=== PATIENT | male | born 1970 ===

== ENCOUNTER 2018-03-14 17:56 | Emergency (ER) | payer MEDICAID ==
[2018-03-14 18:10] VITALS: RESP 16; O2SAT 99
--- NOTE | 2018-03-14 19:13 | ED PDOC ---
HPI: General Adult Time Seen by Provider: 03/14/18 18:39 Chief Complaint (Nursing): Lower Extremity Problem/Injury Chief Complaint (Provider): Extremity Problem/Injury History Per: Patient History/Exam Limitations: no limitations Onset/Duration Of Symptoms: Days (x5) Current Symptoms Are (Timing): Still Present Additional Complaint(s): 47 year old male with a history of diabetes and psoriasis presents to the ED with swelling and numbness in legs, right flank pain and left hand swelling, pain and numbness onset 5 days. Patient reports no injury, but has bruising to his left great toe. He describes intermittent right flank pain that is worse with movement. Patient denies fever, chills, chest pain, abdominal pain, nausea , vomiting, diarrhea, urinary symptoms, or any other medical complaints. His sugar is usually around 200 and he is compliant with his medications with exception of today. PMD: [place] Past Medical History Reviewed: Historical Data, Nursing Documentation, Vital Signs Vital Signs: Last Vital Signs Temp 98.6 F 03/14/18 18:07 Pulse 90 03/14/18 18:07 Resp 16 03/14/18 18:07 BP 156/79 H 03/14/18 18:07 Pulse Ox 99 03/14/18 22:50 - Medical History PMH: Diabetes Other PMH: psoriasis - Surgical History Surgical History: No Surg Hx - Family History Family History: States: Unknown Family Hx - Home Medications Home Medications: Ambulatory Orders Medication Instructions Recorded Cephalexin [cephalexin] 500 mg PO BID #14 cap 03/14/18 Gabapentin 300 mg PO BID #30 capsule 03/14/18 - Allergies Allergies/Adverse Reactions: Allergies Allergy/AdvReac Type Severity Reaction Status Date / Time No Known Allergies Allergy Verified 03/14/18 18:07 Review of Systems ROS Statement: Except As Marked, All Systems Reviewed And Found Negative Genitourinary Male: Positive for: Other (right flank pain ) Musculoskeletal: Positive for: Hand Pain (in left, swelling, pain and numbness) , Other (left great toe bruising, swelling and numbness in legs) Physical Exam - Reviewed Nursing Documentation Reviewed: Yes Vital Signs Reviewed: Yes - Physical Exam Appears: Positive for: Non-toxic, No Acute Distress Head Exam: Positive for: ATRAUMATIC, NORMOCEPHALIC Skin: Positive for: Normal Color, Warm, Dry Eye Exam: Positive for: Normal appearance, EOMI, PERRL ENT: Positive for: Normal ENT Inspection Neck: Positive for: Normal, Painless ROM, Supple Cardiovascular/Chest: Positive for: Regular Rate, Rhythm. Negative for: Murmur Respiratory: Positive for: Normal Breath Sounds. Negative for: Accessory Muscle Use, Respiratory Distress Gastrointestinal/Abdominal: Positive for: Normal Exam, Soft. Negative for: Tenderness Back: Positive for: Other (no flank tenderness). Negative for: R CVA Tenderness Extremity: Positive for: Calf Tenderness (mild), Other (Right dorsum of hand: excoriations and psoriatic rash, right hand: mild tenderness to palpation and erythema) Neurologic/Psych: Positive for: Alert, Oriented (x3) - Laboratory Results Result Diagrams: 03/14/18 19:28 03/14/18 19:28 - ECG O2 Sat by Pulse Oximetry: 99 (RA) Pulse Ox Interpretation: Normal - Progress Re-evaluation Time: 22:40 Condition: Re-examined, Improved Medical Decision Making Medical Decision Making: Time: 1851 Initial Impression: paresthesia of legs, left leg pain, left hand pain and swelling, right flank pain Differential diagnoses include but are not limited to: peripheral diabetic neuropathy of legs, left hand arthritis or possible cellulitis, psoriatic arthritis, musculoskeletal pain and less likely renal colic and uti, dvt, bilateral arthritis of feet possibly psoriatic Initial Plan: --Abdomen and Pelvis CT --CMP --Urine dip --CBC with differentials --Erythrocyte sedimentation --Ultram 50 mg PO --Left foot XR --Left hand XR --Duplex lower extremity Time: 2121 Duplex lower extremity FINDINGS: Right deep veins: Unremarkable. No DVT in the right common femoral, femoral, proximal deep femoral or popliteal veins. The veins demonstrate normal color flow, are normally compressible, with normal phasic flow and/or augmentation response. Right superficial veins: Unremarkable. No thrombus in the visualized right great saphenous vein. Left deep veins: Unremarkable. No DVT in the left common femoral, femoral, proximal deep femoral or popliteal veins. The veins demonstrate normal color flow, are normally compressible, with normal phasic flow and/or augmentation response. Left superficial veins: Unremarkable. No thrombus in the visualized left great saphenous vein. Soft tissues: No acute findings. No popliteal cyst. IMPRESSION: Normal bilateral lower extremity duplex venous ultrasound. Scribe Attestation: Documented by Toña Cordova, acting as a scribe for Arnaud Ma MD Provider Scribe Attestation: All medical record entries made by the Scribe were at my direction and personally dictated by me. I have reviewed the chart and agree that the record accurately reflects my personal performance of the history, physical exam, medical decision making, and the department course for this patient. I have also personally directed, reviewed, and agree with the discharge instructions and disposition. Disposition - Clinical Impression Clinical Impression: Toe injury, Flank pain, Bilateral leg numbness, Hand pain, left, Hyperglycemia , Leg swelling - Patient ED Disposition Is Patient to be Admitted: No Doctor Will See Patient In The: Office Counseled Patient/Family Regarding: Studies Performed, Diagnosis, Need For Followup - Disposition Referrals: Wei Murray MD [Staff Provider] - [facility] [Outside] Disposition: Routine/Home Disposition Time: 22:48 Condition: GOOD Prescriptions: Cephalexin [cephalexin] 500 mg PO BID #14 cap Gabapentin 300 mg PO BID #30 capsule Instructions: Hyperglycemia, Adult, Dependent Edema (DC), Flank Pain, Cellulitis (Skin Infection), Adult (DC), Toe Injury (DC) Print Language: [email or web address]
[2018-03-14 19:35] LABS: BASO # 0.1 K/uL (0.0-0.2); BASO % 0.9 % (0.0-2.0); EOS # 0.1 K/uL (0.0-0.7); EOS % 1.9 % (0.0-4.0); HEMOGLOBIN 13.7 g/dL (12.0-18.0); LYMPH # 1.9 K/uL (1.0-4.3); LYMPH % 25.8 % (20.0-40.0); MEAN CELL VOLUME 81.5 fl (80.0-94.0); MEAN CORPUSCULAR HEMOGLOBIN 27.2 pg (27.0-31.0); MEAN CORPUSCULAR HGB CONC 33.4 g/dL (33.0-37.0); MEAN PLATELET VOLUME 8.7 fl (7.2-11.7); MONO # 0.7 K/uL (0.0-0.8); MONO % 9.3 % (0.0-10.0); NEUT # 4.6 K/uL (1.8-7.0); NEUT % 62.1 % (50.0-75.0); RBC 5.04 Mil/uL (4.40-5.90); RED CELL DISTRIBUTION WIDTH 13.9 % (11.5-14.5); WHITE BLOOD COUNT 7.3 K/uL (4.8-10.8)
[2018-03-14 19:43] LABS: BLOOD UREA NITROGEN 12 mg/dl (9-20); CALCIUM 9.4 mg/dL (8.4-10.2); GFR NON-AFRICAN AMERICAN > 60
[2018-03-15 01:30] VITALS: BP 138/71; PULSE 86; TEMP 98.2
--- NOTE | 2018-03-15 08:36 | RAD ---
PROCEDURE: Left Hand Radiographs. HISTORY: left hand pain swelling no injury COMPARISON: None. FINDINGS: BONES: Bone alignment and mineralization are normal. There is no acute displaced fracture or bone destruction. JOINTS: Normal. SOFT TISSUES: Normal. OTHER FINDINGS: None. IMPRESSION: No acute fracture or dislocation.
--- NOTE | 2018-03-15 08:41 | RAD ---
PROCEDURE: Radiographs of the left great toe. TECHNIQUE:: AP radiograph of the left foot, with oblique and lateral view of the left great toe. COMPARISON: None. FINDINGS: BONES: Bone alignment and mineralization are normal. There is no acute displaced fracture or bone destruction. JOINTS: Normal. SOFT TISSUES: Normal. OTHER FINDINGS: None. IMPRESSION: No acute fracture or dislocation.
--- NOTE | 2018-03-15 08:43 | US ---
Date of service: 03/14/2018 PROCEDURE: Bilateral lower extremity venous duplex Doppler. HISTORY: left leg pain swelling COMPARISON: None available. TECHNIQUE: Bilateral common femoral, superficial femoral, popliteal and posterior tibial veins were evaluated. Flow was assessed with color Doppler, compressibility, assessment of phasic flow and augmentation response. FINDINGS: COMMON FEMORAL VEIN: Right CFV: Normal color flow, compressibility and augmentation response. Left CFV: Normal color flow, compressibility and augmentation response. SUPERFICIAL FEMORAL VEIN: Right SFV: Normal color flow, compressibility and augmentation response. Left SFV: Normal color flow, compressibility and augmentation response. POPLITEAL VEIN: Right Popliteal: Normal color flow, compressibility and augmentation response. Left Popliteal: Normal color flow, compressibility and augmentation response. POSTERIOR TIBIAL VEIN: Right PTV: Normal color flow, compressibility and augmentation response. Left PTV: Normal color flow, compressibility and augmentation response. OTHER FINDINGS: None. IMPRESSION: No evidence of deep venous thrombosis.
--- NOTE | 2018-03-15 10:12 | CT ---
Date of service: 03/14/2018 PROCEDURE: CT Abdomen and Pelvis without intravenous contrast HISTORY: right flank pain COMPARISON: None. TECHNIQUE: Contiguous images were obtained from the domes of the diaphragms to the upper thighs without the administration of intravenous contrast. Oral contrast was not administered. Radiation dose: Total exam DLP = 963.8 mGy-cm. This CT exam was performed using one or more of the following dose reduction techniques: Automated exposure control, adjustment of the mA and/or kV according to patient size, and/or use of iterative reconstruction technique. FINDINGS: LOWER THORAX: Cardiomegaly. No focal consolidation or pleural effusion. LIVER: Diffuse hepatic steatosis. No gross lesion or ductal dilatation. GALLBLADDER AND BILE DUCTS: Unremarkable. PANCREAS: Unremarkable. No gross lesion or ductal dilatation. SPLEEN: Unremarkable. ADRENALS: Unremarkable. No mass. KIDNEYS AND URETERS: Unremarkable. No hydronephrosis. No solid mass. VASCULATURE: Unremarkable. No aortic aneurysm. BOWEL: Unremarkable. No obstruction. No gross mural thickening. APPENDIX: Unremarkable. Normal appendix. PERITONEUM: Small fat containing umbilical hernia. Small fat containing bilateral inguinal hernias. No free fluid. No free air. LYMPH NODES: Unremarkable. No enlarged lymph nodes. BLADDER: Unremarkable. REPRODUCTIVE: Unremarkable. BONES: No acute fracture. OTHER FINDINGS: None. IMPRESSION: No obstructive uropathy or evidence of recently passed genitourinary calculus.
== END 2018-03-14 23:25 | disposition home or self-care (01) ==
LOC: H.ER 17:56
DX: S99.922A Unspecified injury of left foot, initial encounter (principal); E11.65 Type 2 diabetes mellitus with hyperglycemia; R10.9 Unspecified abdominal pain; M79.642 Pain in left hand